=== PATIENT | female | born 1985 | race Caucasian/White ===

== ENCOUNTER → 2019-02-05 | Outpatient (CLI) | payer OTHER | LOC: M.CT 02-02 07:30 | DX: J43.9 Emphysema, unspecified (principal); F41.9 Anxiety disorder, unspecified; F17.210 Nicotine dependence, cigarettes, uncomplicated; Z82.49 Family history of ischemic heart disease and other diseases of the circulatory system; Z80.1 Family history of malignant neoplasm of trachea, bronchus and lung ==

== ENCOUNTER → 2021-06-11 | Outpatient (CLI) | payer OTHER ==
[2021-06-11] VITALS (19 sets, daily range): BP systolic 87–139; BP diastolic 36–101
[~2021-06-11] MED LIST: CLONAZEPAM 0.50.5 M1 PO; FISH OIL 1,0001 EAC9 PO; VITAMIN D325 MC3 PO
--- NOTE | 2021-06-13 15:03 | PROC ---
[facility] [address] [place] [address] PROCEDURE REPORT Name: YOLIS GONZALEZ Room: [facility]#: [id number] Admission: 06/11/21 Attend Phys: Vidal Clemente MD, F Discharge: Date of : 87 Report #: [id number] THIS REPORT FOR: cc: Edgar Noel MD, Bruce D. MD Blick, David R. MD [facility] ~ DATE OF PROCEDURE: 06/11/2021 TILT TABLE TEST PROCEDURE PERFORMED: Head upright tilt table testing using sublingual nitroglycerin. DESCRIPTION OF PROCEDURE: Head upright tilt table testing was requested for this patient with a history of syncope. Vital signs were obtained in the resting state in the supine position. After raising the tilt table to 20 minutes at 70 degrees, the patient was administered sublingual nitroglycerin. ECG monitoring was recorded throughout the procedure. At the end of procedure, the patient was placed back in the supine position. RESULTS: The patient's initial ECG monitor showed a sinus rhythm. The patient was asymptomatic and at baseline had a blood pressure of 125/92 with a pulse of 104. The patient was then placed in the 70 degrees upright position. At this time, she had no complaints. Ten minutes later, the patient had a blood pressure of 134/94 with a pulse of 110 and ECG monitoring showed sinus tachycardia. She was without complaints. After 20 minutes, the patient had a blood pressure of 124/88 with a pulse of 110 and she was in a sinus tachycardia. The patient noted that she felt somewhat diaphoretic and hot. She was given nitroglycerin 0.4 mg sublingually after 20 minutes in the head upright position. Within 5 minutes, the patient complained of a headache. She became dizzy and stated she was felt as if she was going to pass out. The patient then subsequently lost consciousness 5 minutes after sublingual nitroglycerin. At that time, the blood pressure 138/88, pulse was 62 and the patient was in a sinus rhythm. The patient was then placed back in the supine position and was given intravenous fluids. The patient then regained consciousness. At that time, her blood pressure was 138/85 with a pulse of 66. She remained in the supine position without any further complaints. After 15 minutes, intravenous fluids were discontinued and the blood pressure 114/88 with a pulse of 90 and she was in a sinus rhythm. At the end of the study, the patient had a blood pressure of 114/84 with a pulse of 83 and she was in a sinus rhythm and denied any complaints. IMPRESSION: 1. Positive head upright tilt table testing using sublingual nitroglycerin [place] [address] PROCEDURE REPORT Name: YOLIS GONZALEZ CHELSEY Room: [facility] Bianca#: [id number] Admission: 06/11/21 Attend Phys: Vidal Clemente MD, F Discharge: Date of : 87 Report #: [id number] 2. There was neither a cardioinhibitory nor vasodepressor response to head upright tilt table testing. No arrhythmias were noted. <ELECTRONICALLY SIGNED> By: Vidal Clemente MD, FACC 06/13/21 1503 [id number] [id number] Clemente MD, FACC /nt
== END | disposition home or self-care (01) ==
LOC: M.CL 10:00
PROVIDERS: ATTEND Internal Medicine Cardiovascular Disease
DX: R55 Syncope and collapse (principal); Z98.890 Other specified postprocedural states; Z79.899 Other long term (current) drug therapy

== ENCOUNTER → 2021-06-25 | Outpatient (CLI) | payer OTHER ==
--- NOTE | 2021-06-25 14:50 | 2DMMODE ---
[place] [address] 2 D/M-MODE ECHOCARDIOGRAM Name: YOLIS GONZALEZ CHELSEY Room: [facility]#: [id number] Admission: 06/25/21 Attend Phys: Sophie Montoya, Discharge: Date of : 87 Date of Service: 06/25/21 1450 Report #: [id number] THIS REPORT FOR: cc: Edgar Noel MD, Bruce D. MD Blick,Vidal Reilly MD [facility] ~ APPROVED REPORT Study performed: 06/25/2021 12:41:59 EXAM: Comprehensive 2D, Doppler, and color-flow Echocardiogram Patient Location: Out-Patient BSA: 1.53 HR: 89 bpm BP: 112/78 mmHg Other Information Study Quality: Good Technically limited study due to breast implants. Indications Syncope 2D Dimensions IVSd: 8.17 (7-11mm) LVOT Diam: 18.32 (18-24mm) LVDd: 37.70 mm PWd: 5.72 (7-11mm) Ascending Ao: 24.78 (22-36mm) LVDs: 24.70 (25-40mm) Aortic Root: 23.28 mm Volumes Left Atrial Volume (Systole) LA ESV Index: 16.90 mL/m2 Aortic Valve AoV Peak Ben.: 1.04 m/s AO Peak Gr.: 4.32 mmHg LVOT Max P.33 mmHg AO Mean Gr.: 2.47 mmHg LVOT Mean P.23 mmHg LVOT Max V: 0.76 m/s AO V2 VTI: 19.84 cm LVOT Mean V: 0.52 m/s ROWENA (VTI): 1.98 cm2 LVOT V1 VTI: 14.87 [place] [address] 2 D/M-MODE ECHOCARDIOGRAM Name: YOLIS GONZALEZ Room: [facility]#: [id number] Admission: 06/25/21 Attend Phys: Sophie Montoya, Discharge: Date of : 87 Date of Service: 06/25/21 1450 Report #: [id number] Mitral Valve E/A Ratio: 1.37 MV Decel. Time: 188.55 ms MV E Max Ben.: 0.73 m/s MV PHT: 54.68 ms MVA (PHT): 4.02 cm2 TDI E/Lateral E': 4.56 E/Medial E': 7.30 Medial E' Ben.: 0.10 m/s Lateral E' Ben.: 0.16 m/s Pulmonary Valve PV Peak Ben.: 0.80 m/s PV Peak Gr.: 2.58 mmHg Left Ventricle The left ventricle is normal size. There is normal LV segmental wall motion. There is normal left ventricular wall thickness. Left ventricular systolic function is normal. The left ventricular ejection fraction is within the normal range. LVEF is 55-60%. The left ventricular diastolic function is normal. Right Ventricle The right ventricle is normal size. The right ventricular systolic function is normal. Atria The left atrium size is normal. The right atrium size is normal. Aortic Valve The aortic valve is normal in structure. No aortic regurgitation is present. There is no aortic valvular stenosis. Mitral Valve The mitral valve is normal in structure. There is no mitral valve regurgitation noted. No evidence of mitral valve stenosis. Tricuspid Valve The tricuspid valve is normal in structure. There is no tricuspid valve regurgitation noted. Pulmonic Valve Pulmonic valve is not well visualized. There is no pulmonic valvular reg[place]itation[place] [address] 2 D/M-MODE ECHOCARDIOGRAM Name: YOLIS GONZALEZ Room: [facility]#: [id number] Admission: 06/25/21 Attend Phys: Sophie Montoya, Discharge: Date of : 87 Date of Service: 06/25/21 1450 Report #: [id number] Great Vessels The aortic root is normal in size. IVC is normal in size and collapses >50% with inspiration. Pericardium There is no pericardial effusion. Small left pleural effusion. <Conclusion> Left ventricular systolic function is normal. The left ventricular ejection fraction is within the normal range. <ELECTRONICALLY SIGNED> By: Vidal Clemente MD, [facility] 06/25/21 [phone] Vidal Clemente MD, FAC /INF
== END ==
LOC: M.NUC → M.CRD 12:26 → M.NUC 13:00 → M.CRD 13:00 → M.NUC 14:00
PROVIDERS: ATTEND Internal Medicine
DX: R55 Syncope and collapse (principal)

== ENCOUNTER → 2021-07-24 | Outpatient (CLI) | payer OTHER ==
--- NOTE | 2021-07-24 16:32 | CARDNUC ---
[place] [address] CARDIAC NUCLEAR IMAGING REPORT Name: YOLIS GONZALEZ CHELSEY Room: [facility]#: [id number] Admission: 07/24/21 Attend Phys: Sophie Montoya, Discharge: Date of : 87 Date of Service: 07/24/21 1631 Report #: [id number] THIS REPORT FOR: cc: Edgar Noel MD, Bruce D. MD Liston, Michael J. MD [facility] ~ APPROVED REPORT Imaging Protocol: Stress Tc-99m/Rest Tc-99m 1 day Study performed: 07/24/2021 13:45:00 Indication: Syncope Patient Location: Out-Patient Ht: 5 ft 5 in Wt: 111 lbs BSA: 1.54 m2 HR: 67 bpm BP: 113/75 mmHg BMI: 18.46 Medical History Medical History: HTN, Smoking Allergies: No known drug allergies Cardiac Risk Factors: HTN, Tobacco History (Current/Recent) Exercise History: Physically active Resting Data Rest SPECT myocardial perfusion imaging was performed in supine position 30 minutes following the intravenous injection of 9.02 mCi of Tc-99m Sestamibi. Time of rest injection: 14:00 The images were gated to evaluate regional wall motion and calculate left ventricular ejection fraction. Administration Route: IV Administration Site: Right AC Exercise Stress At peak stress, the patient was injected intravenously with 32.7mCi of Tc-99m Sestamibi. Time of stress injection: 15:15 Administration Route: IV Administration Site: Right AC Heart Rate at time of stress injection: 157 bpm. Patient continued to exercise for 2 minute(s). Gated Stress SPECT was performed 30 minutes [place] [address] CARDIAC NUCLEAR IMAGING REPORT Name: YOLIS GONZALEZ Room: [facility]#: [id number] Admission: 07/24/21 Attend Phys: Sophie Montoya, Discharge: Date of : 87 Date of Service: 07/24/21 1631 Report #: [id number] Prone imaging was performed. Stress Test Details Stress Test: Exercise stress testing was performed using a Edgar protocol. HR Max Heart Rate (APMHR): 185 bpm Resting HR: 67 bpm Target HR (85% APMHR): 157 bpm Max HR Achieved: 164 bpm % of APMHR: 88 Recovery HR: 81 bpm HR response to stress: Normal HR response to stress BP Resting BP: 113/75 mmHg Max BP: 174/63 mmHg Recovery BP: 125/84 mmHg BP response to stress: Normal blood pressure response to stress. ECG Resting ECG: Sinus Rhythm Stress ECG: Sinus Tachycardia ST Change: None Arrhythmia: None Recovery ECG: Sinus Rhythm Recovery ST Change: None Recovery Arrhythmia: None Clinical Reason for Termination: Completed protocol Stress Symptoms: Dyspnea, Leg Fatigue Exercise duration: 9 min 43 sec Exercise capacity: 10.42 METs Overall Exercise Capacity for Age: Average The patient tolerated standard Edgar protocol without significant cardiac symptoms. Stress ECG Conclusion The baseline twelve-lead EKG shows sinus rhythm without significant ST segment or T wave abnormality. EKGs obtained during and post exercise show sinus rhythm and sinus tachycardia with no significant ST segment or T wave abnormality when compared to baseline. There were no stress-induced arrhythmias. Study Quality Study: [place] [address] CARDIAC NUCLEAR IMAGING REPORT Name: YOLIS GONZALEZ Room: [facility]#: [id number] Admission: 07/24/21 Attend Phys: Sophie Montoya, Discharge: Date of : 87 Date of Service: 07/24/21 1631 Report #: [id number] Artifact: Mild Breast artifact Study Data At rest, the left ventricular ejection fraction was 77%.. Post stress, the left ventricular ejection was 70%.. TID = 0.98. Perfusion Perfusion images obtained in the supine position at rest and post exercise stress show a focal mild intensity mid anterior wall defect that resolves for the most part with post-rest prone imaging consistent with breast attenuation artifact. Wall motion in this region is normal. No reversible defects are identified. Wall Motion Normal left ventricular wall motion. Nuclear Conclusion ECG Findings: negative for ischemia Clinical Findings: negative for ischemia Nuclear Findings: negative for ischemia Exercise Capacity: normal Left Ventricular Function: normal Risk Study: low Perfusion images show no defect to suggest ischemia. Focal defect in the anterior wall is likely due to breast attenuation artifact. Global LV systolic function is normal with no evidence of wall motion abnormality. This is a low risk study. <Conclusion> The baseline twelve-lead EKG shows sinus rhythm without significant ST segment or T wave abnormality. EKGs obtained during and post exercise show sinus rhythm and sinus tachycardia with no significant ST segment or T wave abnormality when compared to baseline. There were no stress-induced arrhythmias. <ELECTRONICALLY SIGNED> By: Werner Saeed MD, FACC 07/24/21 [phone] eWrner Saeed MD, FACC /INF
--- NOTE | 2021-07-25 09:39 | TST ---
[place] [address] TREADMILL STRESS TEST Name: YOLIS GONZALEZ Room: [facility]#: [id number] Admission: 07/24/21 Attend Phys: Sophie Montoya, Discharge: Date of : 87 Date of Service: 07/24/21 1456 Report #: [id number] THIS REPORT FOR: cc: Edgar Noel MD, Bruce D. MD Liston, Michael J. MD [facility] ~ cc: Kosta Montoya MD [facility] DATE OF SERVICE: 07/24/2021 STANDARD EDGAR PROTOCOL EXERCISE STRESS TEST INDICATION: Syncope. CARDIAC HISTORY: None. RISK FACTORS: Hypertension and tobacco use. CARDIAC MEDICATIONS: None. The patient exercised per standard Edgar protocol for a total of 9 minutes and 43 seconds. The patient achieved 88% of the maximum predicted heart rate and an energy expenditure equivalent to 10.42 METS. The resting heart rate was 67 beats per minute. The resting blood pressure was 113/75 mmHg. At peak stress, the heart rate was 164 beats per minute. Peak stress blood pressure was 174/63 mmHg. Recovery heart rate was 81 beats per minute with recovery blood pressure of 125/84 mmHg. The patient had no significant chest discomfort with exercise. Exercise was terminated due to attainment of target heart rate as well as dyspnea and leg discomfort. The baseline 12-lead EKG shows sinus rhythm without significant ST segment or T-wave abnormality. EKGs obtained during and post-stress showed sinus rhythm and sinus tachycardia with no significant ST segment or T-wave changes when compared to baseline. There were no stress-induced arrhythmias. IMPRESSION: 1. Clinical response, nonischemic. 2. EKG response, nonischemic. <ELECTRONICALLY SIGNED> By: Werner Saeed MD, FACC 07/25/21 0939 1456 [id number] Werner Saeed MD, FACC /nt
== END ==
LOC: M.NUC 06-25 14:00 → M.CRD 07-10 14:00 → M.NUC 07-10 14:00
PROVIDERS: ATTEND Internal Medicine
DX: R55 Syncope and collapse (principal)